=== PATIENT | male | born 2000 | race Hispanic/Latino ===

== ENCOUNTER 2023-01-26 10:35 | Emergency (ER) | payer OTHER ==
[2023-01-26 11:48] LABS: Amphetamine Not Detected (NotDetected); Barbiturates Screen Not Detected (NotDetected); Benzodiazepine Screen Not Detected (NotDetected); Cocaine Metabolite Screen Not Detected (NotDetected); Methadone Not Detected (NotDetected); Methamphetamine Not Detected (NotDetected); Opiate Screen Not Detected (NotDetected); Oxycodone Screen Not Detected (NotDetected); Phencyclidine (PCP) Not Detected (NotDetected); THC/Cannabinoid Screen Not Detected (NotDetected); Tricyclic Screen Not Detected (NotDetected)
[2023-01-26 14:22] LABS: Acetaminophen Less than 10 mcg/mL (10.0-30.0); Alcohol Less than 10.0 mg/dL (Less than 10); Salicylate Less than 8.0 mg/dL (15.0-30.0)
== END 2023-01-26 14:30 ==
LOC: ERS 10:35
DX: Z04.1 Encounter for examination and observation following transport accident (principal)
CPT/HCPCS: 36415; 80306; 80307; 99284

== ENCOUNTER 2023-02-08 14:45 | Emergency (ER) | payer OTHER, SELFPAY | END 2023-02-08 15:43 | disposition home or self-care (01) | LOC: ERS 14:45 | DX: L30.9 Dermatitis, unspecified (principal) | CPT/HCPCS: 99282 ==